=== PATIENT | male | born 1965 | race Two or more races ===

== ENCOUNTER 2022-05-25 16:13 | Emergency (ER) | payer MEDICAID, OTHER ==
[~2022-05-25] VITALS: Ht 170.2 cm; Wt 73.0 kg
[2022-05-25 16:16] VITALS: BP 114/68
== END 2022-05-25 19:25 | disposition home or self-care (01) ==
LOC: ER 16:13
DX: R20.0 Anesthesia of skin (principal); F31.9 Bipolar disorder, unspecified; I12.9 Hypertensive chronic kidney disease with stage 1 through stage 4 chronic kidney disease, or unspecified chronic kidney disease; N18.9 Chronic kidney disease, unspecified
CPT/HCPCS: 99283